=== PATIENT | female | born 1950 | race Hispanic/Latino ===

== ENCOUNTER → 2017-02-13 | Outpatient (CLI) | payer OTHER ==
[~2017-02-13] MED LIST: AMLO10TA2 PO; ASPI-1197 PO; CALC-1085 PO; CHOL500050 PO; GARL1000 PO; HALO15OI4 TP; LORA10CA PO; PRAV20TA4 PO; RED30POW PO; VITA400C70 PO
== END | disposition home or self-care (01) ==
LOC: RAH 10:03
PROVIDERS: ATTEND Internal Medicine
DX: M47.892 Other spondylosis, cervical region (principal); M85.88 Other specified disorders of bone density and structure, other site; I65.22 Occlusion and stenosis of left carotid artery
CPT/HCPCS: 72040

== ENCOUNTER → 2017-02-23 | Outpatient (CLI) | payer OTHER | END | disposition home or self-care (01) | LOC: RAH 12:32 | PROVIDERS: ATTEND Internal Medicine | DX: R09.89 Other specified symptoms and signs involving the circulatory and respiratory systems (principal) | CPT/HCPCS: 93880 ==

== ENCOUNTER → 2017-06-02 | Outpatient (CLI) | payer OTHER | END | disposition home or self-care (01) | LOC: RAH 11:41 | PROVIDERS: ATTEND Internal Medicine | DX: M77.32 Calcaneal spur, left foot (principal) | CPT/HCPCS: 73650 ==

== ENCOUNTER → 2018-01-01 | Outpatient (CLI) | payer OTHER ==
[~2018-01-01] MED LIST changes: -AMLO10TA2 PO; +AMLO10TA6 PO
== END | disposition home or self-care (01) ==
LOC: RAH 13:37
PROVIDERS: ATTEND Internal Medicine
DX: Z12.31 Encounter for screening mammogram for malignant neoplasm of breast (principal)
CPT/HCPCS: 77067

== ENCOUNTER → 2018-07-06 | Outpatient (CLI) | payer OTHER ==
[~2018-07-06] MED LIST changes: -AMLO10TA6 PO; +AMLO10TA7 PO
== END | disposition home or self-care (01) ==
LOC: RAH 08:26
PROVIDERS: ATTEND Dermatology
DX: R76.11 Nonspecific reaction to tuberculin skin test without active tuberculosis (principal)
CPT/HCPCS: 71046

== ENCOUNTER → 2020-01-15 | Outpatient (CLI) | payer OTHER ==
[~2020-01-15] MED LIST changes: +AMLO-258 PO; -AMLO10TA7 PO; +VITA-164 PO; -VITA400C70 PO
== END | disposition home or self-care (01) ==
LOC: RAH 13:30
PROVIDERS: ATTEND Internal Medicine
DX: Z12.31 Encounter for screening mammogram for malignant neoplasm of breast (principal); N64.89 Other specified disorders of breast
CPT/HCPCS: 77067

== ENCOUNTER → 2020-03-25 | Outpatient (CLI) | payer OTHER | END | disposition home or self-care (01) | LOC: RAH 11:25 | PROVIDERS: ATTEND Internal Medicine | DX: R07.81 Pleurodynia (principal); M19.09 Primary osteoarthritis, other specified site; M47.815 Spondylosis without myelopathy or radiculopathy, thoracolumbar region | CPT/HCPCS: 71046; 71100 ==

== ENCOUNTER → 2020-07-31 | Outpatient (CLI) | payer SELFPAY | END | disposition home or self-care (01) | LOC: OIH 11:19 | PROVIDERS: ATTEND Internal Medicine Cardiovascular Disease | DX: Z13.6 Encounter for screening for cardiovascular disorders (principal); I25.10 Atherosclerotic heart disease of native coronary artery without angina pectoris | CPT/HCPCS: 75571 ==

== ENCOUNTER → 2020-08-25 | Outpatient (CLI) | payer OTHER | END | disposition home or self-care (01) | LOC: SHCH 08:31 | PROVIDERS: ATTEND Internal Medicine Cardiovascular Disease | DX: I65.23 Occlusion and stenosis of bilateral carotid arteries (principal); I08.1 Rheumatic disorders of both mitral and tricuspid valves; R55 Syncope and collapse; R09.89 Other specified symptoms and signs involving the circulatory and respiratory systems | CPT/HCPCS: 93306; 93880 ==

== ENCOUNTER 2020-10-05 08:00 | Inpatient (IN) | payer OTHER ==
[2020-10-01 11:35] LABS: BASOPHILS % (AUTO) 0.7 % (0.0-5.0); EOSINOPHILS % (AUTO) 5.6 % (0.0-8.0); HEMATOCRIT 40.4 % (36-48); LYMPHOCYTES % (AUTO) 10.6 % (21.0-51.0); MEAN CORPUSCULAR HEMOGLOBIN 28.5 pg (27.0-33.0); MEAN CORPUSCULAR HGB CONC 33.7 g/dL (32.0-36.0); MEAN CORPUSCULAR VOLUME 84.5 fL (79-99); MONOCYTES % (AUTO) 7.2 % (3.0-13.0); NEUTROPHILS % (AUTO) 74.7 % (40.0-77.0); PLATELET COUNT (AUTO) 219 K/uL (130-400); RED BLOOD CELL COUNT(AUTO) 4.78 MIL/uL (4.00-5.50); RED CELL DISTRIBUTION WIDTH 13.3 % (11.0-15.5); WHITE BLOOD COUNT (AUTO) 7.4 K/uL (4.8-10.8)
[2020-10-01 11:45] LABS: CREATININE 0.8 mg/dL (0.5-1.5); POTASSIUM 4.3 mmol/L (3.5-5.1)
[2020-10-01 11:46] LABS: APPEARANCE,URINE Clear (CLEAR); BILIRUBIN,URINE Negative (NEGATIVE); COLOR,URINE Yellow (YELLOW); GLUCOSE, URINE (UA) Negative (NEGATIVE); KETONES,URINE Negative (NEGATIVE); LEUKOCYTE ESTERASE ,URINE Moderate (NEGATIVE); NITRATE,URINE Negative (NEGATIVE); OCCULT BLOOD,URINE Negative (NEGATIVE); PH,URINE 5.5 (5.0-8.0); PROTEIN,URINE Negative (NEGATIVE)
[2020-10-01 11:50] LABS: INR 1.02 (0.85-1.15); PROTHROMBIN TIME 11.1 SEC (9.6-11.6)
[2020-10-01 11:51] LABS: PARTIAL THROMBOPLASTIN TIME 27.4 SEC (26.3-35.5)
[2020-10-01 11:57] LABS: BACTERIA,URINE Rare /HPF (None Seen); RBC,URINE 0-1 /HPF (0-1); SQUAMOUS EPITHELIAL CELL,UR Rare /HPF (0-2); WBC,URINE 0-1 /HPF (0-1)
[2020-10-05] VITALS (17 sets, daily range): BP systolic 116–142; BP diastolic 46–62
[~2020-10-05] VITALS: Ht 152.4 cm; Wt 72.9 kg
[~2020-10-05 08:00] MED LIST changes: +0.9% NACL 500ML IV.SOLN 500 ML IV SCH; +ACETAMINOPHEN 325 MG TAB PO PRN; -AMLO-258 PO; +ASCO100T12 PO; +ATOR10TA69 PO; -CALC-1085 PO; +CHOL500045 PO; -CHOL500050 PO; -HALO15OI4 TP; +LISI-809 PO; +LORA10TA7 PO; +METO25TA6 PO; -PRAV20TA4 PO; +TRIA15CR48 TP; +UBID200C18 PO; -VITA-164 PO; +vitamin b12 PO
[2020-10-05] MEDS ORDERED: 0.9%NACL 1000ML 1,000 ML IV ONE (08:11)
[2020-10-05] MEDS ORDERED: HEPARIN 10,000 UNIT/10ML (1,000 UNIT/ML) VIAL ONE (11:06)
[2020-10-05] MEDS ORDERED: SODIUM BICARB 50MEQ 50ML VIAL 50 ML ONE (11:06)
[2020-10-05] MEDS ORDERED: IOHEXOL-350 50ML VIAL IV ONE (11:07)
[2020-10-05] MEDS ORDERED: NITROGLYCERIN 2 MG VIAL IV ONE (11:07)
[2020-10-05] MEDS ORDERED: IOHEXOL 350 MG/ML 100ML INFUS..BTL IV ONE (11:07)
[2020-10-05] MEDS ORDERED: MEPERIDINE-PF 25 MG/ML SYG ONE ×2 (11:07→11:35)
[2020-10-05] MEDS ORDERED: MIDAZOLAM HCL 1 MG/ML 2ML VIAL ONE ×2 (11:07→11:35)
[2020-10-05] MEDS ORDERED: LIDOCAINE HCL 400MG/20ML VIAL ONE (11:07)
[2020-10-05] MEDS ORDERED: NICARDIPINE 25MG INJ IV ONE (11:12)
[2020-10-05] MEDS ORDERED: 0.9%NACL 1000ML 1,000 ML IV SCH (12:00)
[2020-10-05] MEDS ORDERED: SODIUM BICARB 8.4% 50ML SYRINGE IVP ONE (14:14)
[2020-10-05] MEDS ORDERED: EPINEPHRINE 1MG SYG 10ML IVP ONE (14:14)
[2020-10-05] MEDS ORDERED: VASOPRESSIN 20 UNITS/ML 1ML VIAL IVP ONE (14:14)
[2020-10-05] MEDS ORDERED: ATROPINE 1MG SYG IVP ONE (14:14)
[2020-10-05 17:18] LABS: HEMATOCRIT 41.1 % (36-48); MEAN CORPUSCULAR HGB CONC 33.3 g/dL (32.0-36.0); RED BLOOD CELL COUNT(AUTO) 4.89 MIL/uL (4.00-5.50); RED CELL DISTRIBUTION WIDTH 13.2 % (11.0-15.5); WHITE BLOOD COUNT (AUTO) 10.2 K/uL (4.8-10.8)
[2020-10-05 17:30] LABS: HEMOGLOBIN A1C 5.5 % (4.0-6.0)
[2020-10-05 17:31] LABS: INR 1.07 (0.85-1.15); PROTHROMBIN TIME 11.6 SEC (9.6-11.6)
[2020-10-05 17:32] LABS: PARTIAL THROMBOPLASTIN TIME 26.2 SEC (26.3-35.5)
[2020-10-05 17:34] LABS: ALBUMIN 3.8 g/dL (3.5-5.0); BILIRUBIN,TOTAL 0.4 mg/dL (0.2-1.0); CREATININE 0.7 mg/dL (0.5-1.5); POTASSIUM 3.8 mmol/L (3.5-5.1); TOTAL PROTEIN, SERUM 7.7 g/dL (6.0-8.3)
[2020-10-05 17:44] LABS: ABG BASE EXCESS -0.1 mmol/L (-2.0-3.0); ABG HCO3 24.5 mmol/L (21.0-28.0); ABG OXYGEN SATURATION 94.9 % (95.0-99.0); ABG PCO2 40 mmHg (32-45)
[2020-10-05] MEDS ORDERED: METOPROLOL TARTRATE 25 MG TAB PO SCH (21:00)
[2020-10-06] VITALS (21 sets, daily range): BP systolic 118–171; BP diastolic 56–95
[2020-10-06 03:53] LABS: HEMATOCRIT 39.6 % (36-48); MEAN CORPUSCULAR HEMOGLOBIN 27.6 pg (27.0-33.0); MEAN CORPUSCULAR HGB CONC 33.1 g/dL (32.0-36.0); MEAN CORPUSCULAR VOLUME 83.5 fL (79-99); RED BLOOD CELL COUNT(AUTO) 4.74 MIL/uL (4.00-5.50); RED CELL DISTRIBUTION WIDTH 13.2 % (11.0-15.5); WHITE BLOOD COUNT (AUTO) 9.2 K/uL (4.8-10.8)
[2020-10-06 03:59] LABS: INR 1.07 (0.85-1.15); PROTHROMBIN TIME 11.6 SEC (9.6-11.6)
[2020-10-06 04:01] LABS: PARTIAL THROMBOPLASTIN TIME 26.5 SEC (26.3-35.5)
[2020-10-06 04:05] LABS: ALBUMIN 3.7 g/dL (3.5-5.0); BILIRUBIN,TOTAL 0.5 mg/dL (0.2-1.0); CREATININE 0.7 mg/dL (0.5-1.5); MAGNESIUM 2.1 mg/dL (1.80-2.40); PHOSPHORUS 3.6 mg/dL (2.5-4.9); TOTAL PROTEIN, SERUM 7.6 g/dL (6.0-8.3)
[2020-10-06] MEDS ORDERED: PAPAVERINE HCL 30 MG/ML 2ML VIAL ONE ×2 (06:53→14:44)
[2020-10-06] MEDS ORDERED: NOREPINEPHRINE BITARTRATE 8 MG in 0.9% NACL 250ML 250 ML IV PRN (07:00)
[2020-10-06] MEDS ORDERED: EPINEPHRINE PF 1MG AMP 10 MG in 0.9% NACL 250ML 240 ML IV PRN (07:00)
[2020-10-06] MEDS ORDERED: 0.9%NACL 1000ML 1,000 ML IV ONE (07:00)
[2020-10-06] MEDS ORDERED: CEFAZOLIN SODIUM 1 GM VIAL ONE ×3 (07:00→14:46)
[2020-10-06] MEDS ORDERED: AMINOCAPROIC ACID 5,000MG VIAL 15,000 MG in 0.9% NACL 500ML IV.SOLN 420 ML IV PRN (07:00)
[2020-10-06] MEDS ORDERED: NITROGLYCERIN 50MG/D5W 250ML 1 BOT ONE (07:08)
[2020-10-06] MEDS: CEFAZOLIN SODIUM 1 GM VIAL ONE ×2 (07:30→08:00)
[2020-10-06] MEDS ORDERED: ESMOLOL HCL 10 MG/ML 10 ML VIAL ONE (07:46)
[2020-10-06] MEDS ORDERED: LIDOCAINE PF 100MG/5ML (2%) SYRINGE 5ML ONE (07:46)
[2020-10-06] MEDS ORDERED: PROTAMINE SULFATE 10 MG/ML 25ML VIAL IV ONE (07:46)
[2020-10-06] MEDS ORDERED: SODIUM BICARB 50MEQ 50ML VIAL 150 ML ONE (07:46)
[2020-10-06] MEDS ORDERED: EPINEPHRINE PF 1MG AMP ONE (07:46)
[2020-10-06] MEDS ORDERED: AMINOCAPROIC ACID 5,000MG VIAL ONE (07:46)
[2020-10-06] MEDS ORDERED: NOREPINEPHRINE BITARTRATE 1 MG/1 ML ML IV ONE (07:46)
[2020-10-06] MEDS ORDERED: HEPARIN 10,000 UNIT/10ML (1,000 UNIT/ML) VIAL ONE ×2 (07:46→15:16)
[2020-10-06] MEDS ORDERED: FENTANYL CITRATE PF 50 MCG/1 ML 20ML VIAL IJ ONE ×2 (07:47→14:53)
[2020-10-06] MEDS ORDERED: MIDAZOLAM HCL 1 MG/ML 2ML VIAL ONE (07:47)
[2020-10-06] MEDS ORDERED: PROPOFOL 10 MG/ML 20ML VIAL IV ONE (07:47)
[2020-10-06] MEDS ORDERED: ROCURONIUM 10MG/1ML SYR 10 MG/ML ML ONE (07:47)
[2020-10-06] MEDS ORDERED: KETAMINE 50MG/ML SYRINGE 50 MG/ML DISP.SYRIN IV ONE (07:47)
[2020-10-06] MEDS ORDERED: LISINOPRIL 5 MG TABLET PO SCH (09:00)
[2020-10-06] MEDS: ATORVASTATIN 40 MG TABLET PO SCH (09:00)
[2020-10-06] MEDS ORDERED: ASPIRIN 81MG CHEW TAB PO SCH (09:00)
[2020-10-06] MEDS ORDERED: POTASSIUM CHLORIDE 20MEQ/100ML 100 ML IV ONE (10:47)
[2020-10-06] MEDS ORDERED: VASOPRESSIN 20 UNITS/ML 1ML VIAL ONE (10:55)
[2020-10-06] MEDS ORDERED: CEFAZOLIN SODIUM 1 GM VIAL IVP PRN (11:00)
[2020-10-06] MEDS ORDERED: 0.9%NACL 10ML VIAL IVP PRN (12:00)
[2020-10-06] MEDS: 0.9%NACL 1000ML 1,000 ML IV SCH (12:00)
[2020-10-06] MEDS ORDERED: NOREPINEPHRINE 4MG/NS 250ML 250 ML IV PRN (12:00)
[2020-10-06] MEDS ORDERED: CALCIUM GLUC 1GM VIAL 1 GM in 0.9%NACL 50ML 50 ML IV PRN (12:00)
[2020-10-06] MEDS ORDERED: DEXTROSE 50%-WATER 50 ML DISP.SYRIN IV PRN (12:00)
[2020-10-06] MEDS ORDERED: MORPHINE 2 MG SYG IV PRN (12:00)
[2020-10-06] MEDS ORDERED: ACETAMINOPHEN 650 MG SUPPOSITORY RC PRN (12:00)
[2020-10-06] MEDS ORDERED: PROPOFOL 1000 MG/100 ML 100 ML IV PRN (12:00)
[2020-10-06] MEDS ORDERED: GLUCAGON 1MG KIT 1 MG ML IM PRN (12:00)
[2020-10-06] MEDS ORDERED: EPINEPHRINE PF 1MG AMP 10 MG in DEXTROSE 5%-WATER 250 ML IV PRN (12:00)
[2020-10-06] MEDS ORDERED: MORPHINE 4 MG SYG IV PRN (12:00)
[2020-10-06] MEDS ORDERED: ALBUMIN (HUMAN) 5% 250 ML IV PRN (12:00)
[2020-10-06] MEDS ORDERED: AMINOCAPROIC ACID 5,000MG VIAL 15,000 MG in 0.9% NACL 250ML 250 ML IV SCH (12:00)
[2020-10-06] MEDS ORDERED: POTASSIUM PHOS 15 mMOL+NS250ML 250 ML IV PRN (12:00)
[2020-10-06] MEDS ORDERED: NITROGLYCERIN 50MG/D5W 250ML 250 BOT IV SCH (12:00)
[2020-10-06] MEDS ORDERED: ACETAMINOPHEN 325 MG TAB PO PRN (12:00)
[2020-10-06] MEDS ORDERED: INSULIN REGULAR, HUMAN 3ML 100 UNIT in 0.9%NACL 100ML 99 ML IV SCH ×2 (12:00)
[2020-10-06] MEDS ORDERED: 0.9% NACL 500ML IV.SOLN 500 ML IV SCH (12:00)
[2020-10-06] MEDS ORDERED: ONDANSETRON 4MG INJ IV PRN (12:00)
[2020-10-06 12:01] LABS: ABG BASE EXCESS -4.8 mmol/L (-2.0-3.0); ABG HCO3 21.2 mmol/L (21.0-28.0); ABG OXYGEN SATURATION 95.5 % (95.0-99.0); ABG PCO2 43 mmHg (32-45)
[2020-10-06 12:13] LABS: ABG BASE EXCESS -6.5 mmol/L (-2.0-3.0); ABG HCO3 19.3 mmol/L (21.0-28.0); ABG OXYGEN SATURATION 95.9 % (95.0-99.0); ABG PCO2 39 mmHg (32-45)
[2020-10-06] MEDS: MAGNESIUM 2GM PREMIX 50ML 50 ML IV PRN ×2 (12:15→17:10)
[2020-10-06] MEDS: POTASSIUM CHLORIDE 20MEQ/100ML 100 ML IV PRN ×8 (12:15→22:55)
[2020-10-06] MEDS: SODIUM BICARB 50MEQ 50ML VIAL IV PRN ×4 (12:15→22:32)
[2020-10-06 12:20] LABS: HEMATOCRIT 32.6 % (36-48); MEAN CORPUSCULAR HEMOGLOBIN 28.2 pg (27.0-33.0); PLATELET COUNT (AUTO) 288 K/uL (130-400); RED BLOOD CELL COUNT(AUTO) 3.93 MIL/uL (4.00-5.50); RED CELL DISTRIBUTION WIDTH 13.2 % (11.0-15.5)
[2020-10-06 12:27] LABS: INR 1.14 (0.85-1.15); PROTHROMBIN TIME 12.3 SEC (9.6-11.6)
[2020-10-06 12:29] LABS: PARTIAL THROMBOPLASTIN TIME 22.8 SEC (26.3-35.5)
[2020-10-06 12:33] LABS: WHITE BLOOD COUNT (AUTO) 33.4 K/uL (4.8-10.8)
[2020-10-06 12:37] LABS: CREATININE 0.9 mg/dL (0.5-1.5); MAGNESIUM 1.8 mg/dL (1.80-2.40); PHOSPHORUS 3.9 mg/dL (2.5-4.9)
[2020-10-06 13:09] LABS: ABG BASE EXCESS -0.8 mmol/L (-2.0-3.0); ABG HCO3 24.2 mmol/L (21.0-28.0); ABG OXYGEN SATURATION 95.7 % (95.0-99.0); ABG PCO2 41 mmHg (32-45)
[2020-10-06 13:10] LABS: BAND NEUTROPHILS % (MANUAL) 16 % (0-2); EOSINOPHILS % (MANUAL) 1 % (1-6); LYMPHOCYTES % (MANUAL) 9 % (22-44); MAN.DIFF COMMENT-IMPRESSION MANUAL DIFFERENTIAL; MONOCYTES % (MANUAL) 3 % (2-9); PLATELET MORPHOLOGY COMMENT ADEQUATE; SEGMENTED NEUTROPHILS % 71 % (40-70)
[2020-10-06 13:57] LABS: ABG BASE EXCESS -1.6 mmol/L (-2.0-3.0); ABG HCO3 22.1 mmol/L (21.0-28.0); ABG OXYGEN SATURATION 99.1 % (95.0-99.0); ABG PCO2 34 mmHg (32-45)
[2020-10-06 13:57] LABS: ABG BASE EXCESS -4.3 mmol/L (-2.0-3.0); ABG HCO3 20.8 mmol/L (21.0-28.0); ABG OXYGEN SATURATION 98.9 % (95.0-99.0); ABG PCO2 38 mmHg (32-45)
[2020-10-06] MEDS ORDERED: MIDAZOLAM HCL 1 MG/ML 5ML VIAL ONE (14:39)
[2020-10-06 15:23] LABS: ABG BASE EXCESS -4.5 mmol/L (-2.0-3.0); ABG HCO3 20.2 mmol/L (21.0-28.0); ABG OXYGEN SATURATION 98.7 % (95.0-99.0); ABG PCO2 36 mmHg (32-45)
[2020-10-06] MEDS ORDERED: EPHEDRINE SULFATE 50 MG/ML AMPULE ONE (15:46)
[2020-10-06 16:12] LABS: ABG BASE EXCESS -3.5 mmol/L (-2.0-3.0); ABG HCO3 21.7 mmol/L (21.0-28.0); ABG OXYGEN SATURATION 98.1 % (95.0-99.0); ABG PCO2 40 mmHg (32-45)
[2020-10-06] MEDS ORDERED: ASPIRIN 325MG TAB ONE (16:49)
[2020-10-06] MEDS ORDERED: CLOPIDOGREL 75MG TAB ONE (16:49)
[2020-10-06 17:19] LABS: BASOPHILS % (AUTO) 0.4 % (0.0-5.0); EOSINOPHILS % (AUTO) 0.1 % (0.0-8.0); HEMATOCRIT 29.7 % (36-48); LYMPHOCYTES % (AUTO) 4.1 % (21.0-51.0); MEAN CORPUSCULAR HEMOGLOBIN 28.4 pg (27.0-33.0); MEAN CORPUSCULAR HGB CONC 33.3 g/dL (32.0-36.0); MEAN CORPUSCULAR VOLUME 85.3 fL (79-99); MONOCYTES % (AUTO) 7.5 % (3.0-13.0); NEUTROPHILS % (AUTO) 86.4 % (40.0-77.0); PLATELET COUNT (AUTO) 220 K/uL (130-400); RED BLOOD CELL COUNT(AUTO) 3.48 MIL/uL (4.00-5.50); RED CELL DISTRIBUTION WIDTH 13.4 % (11.0-15.5)
[2020-10-06 17:23] LABS: WHITE BLOOD COUNT (AUTO) 32.6 K/uL (4.8-10.8)
[2020-10-06 17:25] LABS: ABG BASE EXCESS -9.9 mmol/L (-2.0-3.0); ABG HCO3 18.2 mmol/L (21.0-28.0); ABG OXYGEN SATURATION 92.4 % (95.0-99.0); ABG PCO2 50 mmHg (32-45)
[2020-10-06] MEDS ORDERED: AMIODARONE 900MG VIAL 150 MG in DEXTROSE 5%-WATER 100 ML IV ONE (17:30)
[2020-10-06] MEDS ORDERED: AMIODARONE 900MG VIAL 900 MG in DEXTROSE 5%-WATER 500 ML IV SCH (17:30)
[2020-10-06] MEDS: CEFAZOLIN SODIUM 1 GM VIAL IV SCH (17:38)
[2020-10-06 17:39] LABS: CREATININE 1.1 mg/dL (0.5-1.5); POTASSIUM 3.4 mmol/L (3.5-5.1)
[2020-10-06 17:42] LABS: INR 1.31 (0.85-1.15); MAGNESIUM 1.8 mg/dL (1.80-2.40); PHOSPHORUS 2.6 mg/dL (2.5-4.9); PROTHROMBIN TIME 13.9 SEC (9.6-11.6)
[2020-10-06 17:43] LABS: PARTIAL THROMBOPLASTIN TIME 22.9 SEC (26.3-35.5)
[2020-10-06] MEDS ORDERED: AMIODARONE 900MG VIAL 360 MG in DEXTROSE 5%-WATER 200 ML IV SCH (17:45)
[2020-10-06] MEDS ORDERED: NOREPINEPHRINE 8MG/NS 250 ML 250 ML IV PRN (18:30)
[2020-10-06] MEDS: PHENYLEPHRINE HCL 100 MG in 0.9% NACL 250ML 250 ML IV SCH ×2 (19:39→22:11)
[2020-10-06 20:07] LABS: ABG BASE EXCESS -9.8 mmol/L (-2.0-3.0); ABG HCO3 16.4 mmol/L (21.0-28.0); ABG OXYGEN SATURATION 97.7 % (95.0-99.0); ABG PCO2 37 mmHg (32-45)
[2020-10-06 20:54] LABS: HEMATOCRIT 25.1 % (36-48); MEAN CORPUSCULAR HEMOGLOBIN 28.1 pg (27.0-33.0); MEAN CORPUSCULAR HGB CONC 33.9 g/dL (32.0-36.0); MEAN CORPUSCULAR VOLUME 83.1 fL (79-99); RED BLOOD CELL COUNT(AUTO) 3.02 MIL/uL (4.00-5.50); RED CELL DISTRIBUTION WIDTH 13.5 % (11.0-15.5); WHITE BLOOD COUNT (AUTO) 25.9 K/uL (4.8-10.8)
[2020-10-06 21:18] LABS: ALANINE AMINOTRANSFERASE 32 U/L (12-78); ALBUMIN 2.2 g/dL (3.5-5.0); ASPARTATE AMINOTRANSFERASE 126 U/L (10-37); BILIRUBIN,TOTAL 0.4 mg/dL (0.2-1.0); CARBON DIOXIDE 28 mmol/L (21-32); CHLORIDE 118 mmol/L (101-111); CREATININE 1.6 mg/dL (0.5-1.5); GLOMERULAR FILTR. RATE CALC 34 mL/min (>60); POTASSIUM 3.1 mmol/L (3.5-5.1); TOTAL PROTEIN, SERUM 4.2 g/dL (6.0-8.3); UREA NITROGEN, BLOOD 15 mg/dL (7-18)
[2020-10-06 21:25] LABS: GLUCOSE,RANDOM 484 mg/dL (70-105); SODIUM SERUM > 162 mmol/L (136-145)
[2020-10-06] MEDS: FAMOTIDINE 20MG VIAL IV SCH (21:38)
[2020-10-06 22:14] LABS: ABG BASE EXCESS -2.2 mmol/L (-2.0-3.0); ABG HCO3 21.5 mmol/L (21.0-28.0); ABG PCO2 34 mmHg (32-45)
[2020-10-06] MEDS ORDERED: AMIODARONE 900MG VIAL 450 MG in DEXTROSE 5%-WATER 250 ML IV SCH (23:45)
[2020-10-07] VITALS (86 sets, daily range): BP systolic 24–186; BP diastolic 40–84
[2020-10-07 00:14] LABS: ABG BASE EXCESS -0.6 mmol/L (-2.0-3.0); ABG HCO3 22.7 mmol/L (21.0-28.0); ABG OXYGEN SATURATION 97.3 % (95.0-99.0); ABG PCO2 33 mmHg (32-45)
[2020-10-07] MEDS: CEFAZOLIN SODIUM 1 GM VIAL IV SCH ×2 (00:32→09:22)
[2020-10-07] MEDS: POTASSIUM CHLORIDE 20MEQ/100ML 100 ML IV PRN ×3 (00:32→06:15)
[2020-10-07 02:10] LABS: ABG BASE EXCESS 2.5 mmol/L (-2.0-3.0); ABG HCO3 25.2 mmol/L (21.0-28.0); ABG OXYGEN SATURATION 97.6 % (95.0-99.0); ABG PCO2 32 mmHg (32-45)
[2020-10-07 04:16] LABS: ABG BASE EXCESS 2.7 mmol/L (-2.0-3.0); ABG HCO3 26.2 mmol/L (21.0-28.0); ABG OXYGEN SATURATION 97.2 % (95.0-99.0); ABG PCO2 37 mmHg (32-45)
[2020-10-07 04:38] LABS: HEMATOCRIT 33.9 % (36-48); MEAN CORPUSCULAR HEMOGLOBIN 28.5 pg (27.0-33.0); MEAN CORPUSCULAR HGB CONC 34.2 g/dL (32.0-36.0); MEAN CORPUSCULAR VOLUME 83.3 fL (79-99); RED BLOOD CELL COUNT(AUTO) 4.07 MIL/uL (4.00-5.50); RED CELL DISTRIBUTION WIDTH 13.4 % (11.0-15.5); WHITE BLOOD COUNT (AUTO) 22.5 K/uL (4.8-10.8)
[2020-10-07 04:47] LABS: INR 1.21 (0.85-1.15)
[2020-10-07 04:48] LABS: PARTIAL THROMBOPLASTIN TIME 24.5 SEC (26.3-35.5)
[2020-10-07 04:51] LABS: CREATININE 1.1 mg/dL (0.5-1.5); MAGNESIUM 2.2 mg/dL (1.80-2.40); PHOSPHORUS 0.6 mg/dL (2.5-4.9); POTASSIUM 3.3 mmol/L (3.5-5.1)
[2020-10-07 07:19] LABS: ABG BASE EXCESS 4.9 mmol/L (-2.0-3.0); ABG HCO3 27.7 mmol/L (21.0-28.0); ABG OXYGEN SATURATION 97.3 % (95.0-99.0); ABG PCO2 35 mmHg (32-45)
[2020-10-07 08:21] LABS: MYOGLOBIN 936 ng/mL (10-92)
[2020-10-07 09:03] LABS: CREATINE KINASE, TOTAL 2513 U/L (21-232)
[2020-10-07 09:15] LABS: ABG BASE EXCESS 4.6 mmol/L (-2.0-3.0); ABG HCO3 27.9 mmol/L (21.0-28.0); ABG OXYGEN SATURATION 95.6 % (95.0-99.0); ABG PCO2 37 mmHg (32-45)
[2020-10-07] MEDS: CLOPIDOGREL 75MG TAB PO SCH (09:22)
[2020-10-07] MEDS: ATORVASTATIN 40 MG TABLET PO SCH (09:22)
[2020-10-07] MEDS: FAMOTIDINE 20MG VIAL IV SCH ×2 (09:22→20:03)
[2020-10-07] MEDS: ASPIRIN 325MG TAB PO SCH (09:22)
[2020-10-07] MEDS: 0.9%NACL 1000ML 1,000 ML IV SCH (09:23)
[2020-10-07 10:37] LABS: ABG BASE EXCESS 5.5 mmol/L (-2.0-3.0); ABG HCO3 29.4 mmol/L (21.0-28.0); ABG OXYGEN SATURATION 93.8 % (95.0-99.0); ABG PCO2 41 mmHg (32-45)
[2020-10-07] MEDS: TRAMADOL HCL 50 MG TABLET PO PRN ×4 (10:45→22:01)
[2020-10-07] MEDS ORDERED: ATORVASTATIN 40 MG TABLET PO SCH (21:00)
[2020-10-07 21:55] LABS: MAGNESIUM 2.1 mg/dL (1.80-2.40); POTASSIUM 4.9 mmol/L (3.5-5.1)
[2020-10-07] MEDS: LORATADINE 10 MG TABLET PO PRN (22:01)
[2020-10-07] MEDS: ACETAMINOPHEN 325 MG TAB PO PRN (22:01)
[2020-10-08] VITALS (72 sets, daily range): BP systolic 89–146; BP diastolic 31–88
[2020-10-08 03:51] LABS: HEMATOCRIT 29.9 % (36-48); MEAN CORPUSCULAR HEMOGLOBIN 29.1 pg (27.0-33.0); MEAN CORPUSCULAR HGB CONC 33.8 g/dL (32.0-36.0); MEAN CORPUSCULAR VOLUME 86.2 fL (79-99); NUCLEATED RED BLOOD CELLS 0.1 % (0.0-0.19); PLATELET COUNT (AUTO) 122 K/uL (130-400); RED BLOOD CELL COUNT(AUTO) 3.47 MIL/uL (4.00-5.50); RED CELL DISTRIBUTION WIDTH 14.6 % (11.0-15.5)
[2020-10-08 03:56] LABS: WHITE BLOOD COUNT (AUTO) 35.2 K/uL (4.8-10.8)
[2020-10-08 04:01] LABS: PHOSPHORUS 4.1 mg/dL (2.5-4.9); POTASSIUM 4.9 mmol/L (3.5-5.1)
[2020-10-08 04:21] LABS: BAND NEUTROPHILS % (MANUAL) 26 % (0-2); LYMPHOCYTES % (MANUAL) 7 % (22-44); MAN.DIFF COMMENT-IMPRESSION MANUAL DIFFERENTIAL; METAMYELOCYTES % 1 % (0-0); MONOCYTES % (MANUAL) 5 % (2-9); REACTIVE LYMPHOCYTES 1 % (0-0); SEGMENTED NEUTROPHILS % 60 % (40-70)
[2020-10-08 04:22] LABS: PLATELET MORPHOLOGY COMMENT ADEQUATE
[2020-10-08] MEDS: INSULIN HUMULIN R 100 UNIT/ML 3ML SQ SCH ×4 (06:08→20:51)
[2020-10-08 07:21] LABS: ABG OXYGEN SATURATION 89.7 % (95.0-99.0); ABG PCO2 39 mmHg (32-45)
[2020-10-08] MEDS: FAMOTIDINE 20MG VIAL IV SCH ×2 (10:47→19:38)
[2020-10-08] MEDS: ASPIRIN 325MG TAB PO SCH (10:48)
[2020-10-08] MEDS: ATORVASTATIN 40 MG TABLET PO SCH (10:48)
[2020-10-08] MEDS: TRAMADOL HCL 50 MG TABLET PO PRN (10:48)
[2020-10-08] MEDS: CLOPIDOGREL 75MG TAB PO SCH (10:48)
[2020-10-08] MEDS ORDERED: ZOSYN 3.375GM+NS 50ML 3.38 GM in 0.9%NACL 50ML 50 ML IV SCH (15:30)
[2020-10-08 16:15] LABS: APPEARANCE,URINE Clear (CLEAR); BILIRUBIN,URINE Negative (NEGATIVE); COLOR,URINE Yellow (YELLOW); GLUCOSE, URINE (UA) Negative (NEGATIVE); KETONES,URINE 40 mg/dL (NEGATIVE); LEUKOCYTE ESTERASE ,URINE Negative (NEGATIVE); NITRATE,URINE Negative (NEGATIVE); OCCULT BLOOD,URINE Negative (NEGATIVE); PH,URINE 6.5 (5.0-8.0); PROTEIN,URINE Trace mg/dL (NEGATIVE)
[2020-10-08 16:25] LABS: BACTERIA,URINE Rare /HPF (None Seen); RBC,URINE None Seen /HPF (0-1); SQUAMOUS EPITHELIAL CELL,UR None Seen /HPF (0-2); WBC,URINE 0-1 /HPF (0-1)
[2020-10-08] MEDS: FUROSEMIDE 20 MG TABLET PO SCH (16:49)
[2020-10-08] MEDS: ZOSYN 3.375GM+NS 50ML 50 ML IV SCH (16:49)
[2020-10-08] MEDS: LORATADINE 10 MG TABLET PO PRN (19:39)
[2020-10-08] MEDS: ACETAMINOPHEN 325 MG TAB PO PRN (19:39)
[2020-10-08] MEDS: AMIODARONE 200 MG TABLET PO SCH (19:39)
[2020-10-08 22:26] LABS: ABG BASE EXCESS 4.4 mmol/L (-2.0-3.0); ABG HCO3 27.5 mmol/L (21.0-28.0); ABG OXYGEN SATURATION 93.1 % (95.0-99.0); ABG PCO2 35 mmHg (32-45)
[2020-10-08] MEDS ORDERED: DiphenhydrAMINE HCL 50 MG/ML VIAL IV ONE (22:30)
[2020-10-08] MEDS ORDERED: DiphenhydrAMINE HCL 50 MG/ML VIAL ONE (22:37)
[2020-10-08] MEDS ORDERED: FUROSEMIDE 100MG VIAL ONE (23:49)
[2020-10-08] MEDS ORDERED: 0.9%NACL 100ML 100 ML ONE (23:50)
[2020-10-09] VITALS (33 sets, daily range): BP systolic 85–157; BP diastolic 40–104
[2020-10-09] MEDS ORDERED: FUROSEMIDE 100MG VIAL 100 MG in 0.9%NACL 100ML 100 ML IV SCH ×2
[2020-10-09] MEDS: ZOSYN 3.375GM+NS 50ML 50 ML IV SCH ×3 (00:02→16:02)
[2020-10-09 03:30] LABS: ABG BASE EXCESS 4.6 mmol/L (-2.0-3.0); ABG HCO3 27.8 mmol/L (21.0-28.0); ABG OXYGEN SATURATION 98.9 % (95.0-99.0); ABG PCO2 37 mmHg (32-45)
[2020-10-09 04:01] LABS: HEMATOCRIT 27.1 % (36-48); MEAN CORPUSCULAR HEMOGLOBIN 28.2 pg (27.0-33.0); MEAN CORPUSCULAR HGB CONC 31.7 g/dL (32.0-36.0); MEAN CORPUSCULAR VOLUME 88.9 fL (79-99); NUCLEATED RED BLOOD CELLS 0.7 % (0.0-0.19); RED BLOOD CELL COUNT(AUTO) 3.05 MIL/uL (4.00-5.50); RED CELL DISTRIBUTION WIDTH 14.6 % (11.0-15.5)
[2020-10-09 04:07] LABS: WHITE BLOOD COUNT (AUTO) 30.2 K/uL (4.8-10.8)
[2020-10-09 04:10] LABS: CREATININE 1.1 mg/dL (0.5-1.5); POTASSIUM 3.9 mmol/L (3.5-5.1)
[2020-10-09 04:12] LABS: PLATELET COUNT (AUTO) 109 K/uL (130-400)
[2020-10-09 04:32] LABS: BAND NEUTROPHILS % (MANUAL) 26 % (0-2); LYMPHOCYTES % (MANUAL) 2 % (22-44); MAN.DIFF COMMENT-IMPRESSION MANUAL DIFFERENTIAL; MONOCYTES % (MANUAL) 5 % (2-9); SEGMENTED NEUTROPHILS % 67 % (40-70)
[2020-10-09 04:33] LABS: PLATELET MORPHOLOGY COMMENT SLIGHTLY DECREASED
[2020-10-09] MEDS: INSULIN HUMULIN R 100 UNIT/ML 3ML SQ SCH ×4 (07:30→20:25)
[2020-10-09] MEDS: FUROSEMIDE 20 MG TABLET PO SCH ×2 (08:14→17:00)
[2020-10-09] MEDS ORDERED: ENOXAPARIN SODIUM 40 MG/0.4 ML SYRINGE SQ SCH (09:00)
[2020-10-09] MEDS ORDERED: ASPIRIN 325MG TAB PO SCH (09:00)
[2020-10-09] MEDS: AMIODARONE 200 MG TABLET PO SCH ×2 (09:03→20:25)
[2020-10-09] MEDS: FAMOTIDINE 20MG VIAL IV SCH ×2 (09:03→20:24)
[2020-10-09] MEDS: ATORVASTATIN 40 MG TABLET PO SCH (09:03)
[2020-10-09] MEDS: CLOPIDOGREL 75MG TAB PO SCH (09:04)
[2020-10-09] MEDS: ASPIRIN 81MG CHEW TAB PO SCH (09:06)
[2020-10-09] MEDS ORDERED: LIDOCAINE HCL-MPF 1% 2ML VIAL IV PRN (14:30)
[2020-10-09] MEDS ORDERED: POTASSIUM CHLORIDE 20MEQ/100ML 100 ML IV PRN (14:30)
[2020-10-09] MEDS: MIDODRINE HCL 5 MG TABLET PO SCH ×2 (14:49→20:24)
[2020-10-09] MEDS ORDERED: KCL 20 MEQ ERTAB PO PRN (16:00)
[2020-10-09] MEDS: KCL 20 MEQ ERTAB PO PRN (16:02)
[2020-10-10] VITALS (15 sets, daily range): BP systolic 88–132; BP diastolic 42–63
[2020-10-10] MEDS: ZOSYN 3.375GM+NS 50ML 50 ML IV SCH ×4 (00:15→23:52)
[2020-10-10 04:12] LABS: HEMATOCRIT 27.2 % (36-48); MEAN CORPUSCULAR HEMOGLOBIN 28.3 pg (27.0-33.0); MEAN CORPUSCULAR HGB CONC 32.4 g/dL (32.0-36.0); MEAN CORPUSCULAR VOLUME 87.5 fL (79-99); NUCLEATED RED BLOOD CELLS 0.4 % (0.0-0.19); RED BLOOD CELL COUNT(AUTO) 3.11 MIL/uL (4.00-5.50); RED CELL DISTRIBUTION WIDTH 14.2 % (11.0-15.5); WHITE BLOOD COUNT (AUTO) 23.3 K/uL (4.8-10.8)
[2020-10-10 04:27] LABS: CREATININE 1.1 mg/dL (0.5-1.5)
[2020-10-10 04:33] LABS: POTASSIUM 2.9 mmol/L (3.5-5.1)
[2020-10-10] MEDS: POTASSIUM CHLORIDE 20MEQ/100ML 100 ML IV PRN (04:41)
[2020-10-10] MEDS: POTASSIUM CHLORIDE 10% ELIXIR 20 MEQ/15 ML UDCUP PO PRN ×2 (05:12→08:00)
[2020-10-10] MEDS: INSULIN HUMULIN R 100 UNIT/ML 3ML SQ SCH (05:51)
[2020-10-10] MEDS: AMIODARONE 200 MG TABLET PO SCH ×2 (08:01→21:00)
[2020-10-10] MEDS: ATORVASTATIN 40 MG TABLET PO SCH (08:01)
[2020-10-10] MEDS: ENOXAPARIN SODIUM 30 MG/0.3 ML SQ SCH (08:01)
[2020-10-10] MEDS: TRAMADOL HCL 50 MG TABLET PO PRN (08:02)
[2020-10-10] MEDS: ASPIRIN 81MG CHEW TAB PO SCH (08:02)
[2020-10-10] MEDS: CLOPIDOGREL 75MG TAB PO SCH (08:02)
[2020-10-10] MEDS: MIDODRINE HCL 5 MG TABLET PO SCH (08:04)
[2020-10-10] MEDS: FUROSEMIDE 20 MG TABLET PO SCH ×2 (08:04→17:29)
[2020-10-10] MEDS: FAMOTIDINE 20MG TAB PO SCH (08:05)
[2020-10-10] MEDS ORDERED: TRAMADOL HCL 50 MG TABLET PO PRN ×2 (10:00)
[2020-10-10] MEDS: METOPROLOL TARTRATE 25 MG TAB PO SCH (21:00)
[2020-10-10] MEDS ORDERED: 0.9%NACL 50ML 50 ML IV ONE (23:28)
[2020-10-11 03:00] VITALS: BP 104/57
[2020-10-11 08:00] VITALS: BP 107/58
[2020-10-11] MEDS ORDERED: 0.9%NACL 50ML 50 ML IV ONE ×3 (08:32→23:15)
[2020-10-11] MEDS: METOPROLOL TARTRATE 25 MG TAB PO SCH ×2 (08:40→20:25)
[2020-10-11] MEDS: FAMOTIDINE 20MG TAB PO SCH (08:41)
[2020-10-11] MEDS: AMIODARONE 200 MG TABLET PO SCH ×2 (08:41→20:25)
[2020-10-11] MEDS: CLOPIDOGREL 75MG TAB PO SCH (08:41)
[2020-10-11] MEDS: FUROSEMIDE 20 MG TABLET PO SCH ×2 (08:41→18:01)
[2020-10-11] MEDS: ATORVASTATIN 40 MG TABLET PO SCH (08:41)
[2020-10-11] MEDS: ASPIRIN 81MG CHEW TAB PO SCH (08:41)
[2020-10-11] MEDS: ENOXAPARIN SODIUM 30 MG/0.3 ML SQ SCH (08:42)
[2020-10-11] MEDS: ZOSYN 3.375GM+NS 50ML 50 ML IV SCH ×2 (08:42→18:01)
[2020-10-11] MEDS: KCL 20 MEQ ERTAB PO PRN ×2 (08:42→18:01)
[2020-10-11 12:15] VITALS: BP 97/54
[2020-10-11 17:05] VITALS: BP 119/54
[2020-10-11 19:00] VITALS: BP 116/85
[2020-10-11 23:00] VITALS: BP 120/76
[2020-10-12] MEDS: ZOSYN 3.375GM+NS 50ML 50 ML IV SCH ×2 (00:03→07:37)
[2020-10-12 03:00] VITALS: BP 111/60
[2020-10-12] MEDS ORDERED: 0.9%NACL 50ML 50 ML IV ONE (07:11)
[2020-10-12] MEDS: BENZOCAINE/MENTH/CETYLPYRD CL 1 EACH LOZENGE MM PRN ×3 (07:37→20:35)
[2020-10-12] MEDS: CLOPIDOGREL 75MG TAB PO SCH (07:38)
[2020-10-12] MEDS: FUROSEMIDE 20 MG TABLET PO SCH ×2 (07:38→16:14)
[2020-10-12] MEDS: ENOXAPARIN SODIUM 30 MG/0.3 ML SQ SCH (07:38)
[2020-10-12] MEDS: ATORVASTATIN 40 MG TABLET PO SCH (07:39)
[2020-10-12] MEDS: METOPROLOL TARTRATE 25 MG TAB PO SCH ×2 (07:39→20:33)
[2020-10-12] MEDS: AMIODARONE 200 MG TABLET PO SCH ×2 (07:39→20:34)
[2020-10-12] MEDS: FAMOTIDINE 20MG TAB PO SCH (07:39)
[2020-10-12] MEDS: ASPIRIN 81MG CHEW TAB PO SCH (07:39)
[2020-10-12 08:28] VITALS: BP 108/56
[2020-10-12] MEDS: NYSTATIN 100000 UNIT/ML 5ML UDCUP PO SCH ×2 (12:03→20:34)
[2020-10-12 12:12] VITALS: BP 126/65
[2020-10-12 16:54] VITALS: BP 110/66
[2020-10-12 19:43] VITALS: BP 108/65
[2020-10-12 23:38] VITALS: BP 97/54
[2020-10-13 04:00] VITALS: BP 102/60
[2020-10-13] MEDS: BENZOCAINE/MENTH/CETYLPYRD CL 1 EACH LOZENGE MM PRN ×3 (05:22→18:29)
[2020-10-13] MEDS: CLOPIDOGREL 75MG TAB PO SCH (07:09)
[2020-10-13] MEDS: METOPROLOL TARTRATE 25 MG TAB PO SCH (07:09)
[2020-10-13] MEDS: FAMOTIDINE 20MG TAB PO SCH (07:09)
[2020-10-13] MEDS: ATORVASTATIN 40 MG TABLET PO SCH (07:09)
[2020-10-13] MEDS: FUROSEMIDE 20 MG TABLET PO SCH ×2 (07:10→16:12)
[2020-10-13] MEDS: NYSTATIN 100000 UNIT/ML 5ML UDCUP PO SCH ×3 (07:10→20:02)
[2020-10-13] MEDS: ASPIRIN 81MG CHEW TAB PO SCH (07:10)
[2020-10-13] MEDS: AMIODARONE 200 MG TABLET PO SCH (07:11)
[2020-10-13] MEDS: ENOXAPARIN SODIUM 30 MG/0.3 ML SQ SCH (07:12)
[2020-10-13 07:30] VITALS: BP 107/61
[2020-10-13] MEDS ORDERED: LOPERAMIDE 1 MG/7.5 ML UDCUP PO PRN (08:30)
[2020-10-13 11:05] VITALS: BP 109/56
[2020-10-13] MEDS: LOSARTAN 25 MG TABLET PO SCH (12:07)
[2020-10-13] MEDS ORDERED: AMLO-258 PO (12:12)
[2020-10-13] MEDS ORDERED: LISINOPRIL 2.5 MG TABLET PO SCH (13:00)
[2020-10-13 16:00] VITALS: BP 115/65
[2020-10-13 19:44] VITALS: BP 111/70
[2020-10-13] MEDS: METOPROLOL SUCCINATE 50 MG TAB.SR.24H PO SCH (20:02)
[2020-10-13 23:37] VITALS: BP 106/61
[2020-10-14 03:29] LABS: BASOPHILS % (AUTO) 0.4 % (0.0-5.0); EOSINOPHILS % (AUTO) 6.9 % (0.0-8.0); HEMATOCRIT 29.9 % (36-48); MEAN CORPUSCULAR HEMOGLOBIN 28.2 pg (27.0-33.0); MEAN CORPUSCULAR HGB CONC 31.8 g/dL (32.0-36.0); MEAN CORPUSCULAR VOLUME 88.7 fL (79-99); MONOCYTES % (AUTO) 10.4 % (3.0-13.0); NUCLEATED RED BLOOD CELLS 1.1 % (0.0-0.19); PLATELET COUNT (AUTO) 236 K/uL (130-400); RED BLOOD CELL COUNT(AUTO) 3.37 MIL/uL (4.00-5.50); RED CELL DISTRIBUTION WIDTH 16.1 % (11.0-15.5); WHITE BLOOD COUNT (AUTO) 13.6 K/uL (4.8-10.8)
[2020-10-14 03:38] LABS: CREATININE 0.9 mg/dL (0.5-1.5)
[2020-10-14 03:47] LABS: POTASSIUM 2.9 mmol/L (3.5-5.1)
[2020-10-14] MEDS: KCL 20 MEQ ERTAB PO PRN (04:04)
[2020-10-14 04:20] VITALS: BP 125/60
[2020-10-14] MEDS: POTASSIUM CHLORIDE 10% ELIXIR 20 MEQ/15 ML UDCUP PO PRN ×3 (06:32→10:30)
[2020-10-14 07:59] VITALS: BP 129/65
[2020-10-14] MEDS ORDERED: KCL 20 MEQ ERTAB PO SCH (08:00)
[2020-10-14] MEDS: ASPIRIN 81MG CHEW TAB PO SCH (08:18)
[2020-10-14] MEDS: CLOPIDOGREL 75MG TAB PO SCH (08:18)
[2020-10-14] MEDS: LOSARTAN 25 MG TABLET PO SCH (08:18)
[2020-10-14] MEDS: ATORVASTATIN 40 MG TABLET PO SCH (08:18)
[2020-10-14] MEDS: FAMOTIDINE 20MG TAB PO SCH (08:19)
[2020-10-14] MEDS: METOPROLOL SUCCINATE 50 MG TAB.SR.24H PO SCH (08:19)
[2020-10-14] MEDS: FUROSEMIDE 20 MG TABLET PO SCH ×2 (08:19→16:43)
[2020-10-14] MEDS: NYSTATIN 100000 UNIT/ML 5ML UDCUP PO SCH ×2 (08:19→14:00)
[2020-10-14] MEDS: POTASSIUM CHLORIDE 10% ELIXIR 20 MEQ/15 ML UDCUP PO SCH ×2 (08:20→16:43)
[2020-10-14] MEDS: ENOXAPARIN SODIUM 30 MG/0.3 ML SQ SCH (08:24)
[2020-10-14] MEDS ORDERED: SPIRONOLACTONE 25 MG TAB PO SCH (09:00)
[2020-10-14] MEDS ORDERED: AMIODARONE 200 MG TABLET PO SCH (09:00)
[2020-10-14 11:28] VITALS: BP 104/54
== END 2020-10-14 18:15 | DRG 231 ==
LOC: DAH 08:00 → DAHIP 08:01 → DAH 08:01 → 4CH 19:25 → 2CH 10-06 09:29 → 2DH 10-10 14:04
PROVIDERS: ADMIT Thoracic Surgery (Cardiothoracic Vascular Surgery); ATTEND Thoracic Surgery (Cardiothoracic Vascular Surgery)
PROC: 4A023N7 Measurement of Cardiac Sampling and Pressure, Left Heart, Percutaneous Approach (ICD-10-PCS; 2020-10-05)
PROC: B2111ZZ Fluoroscopy of Multiple Coronary Arteries using Low Osmolar Contrast (ICD-10-PCS; 2020-10-05)
PROC: B2151ZZ Fluoroscopy of Left Heart using Low Osmolar Contrast (ICD-10-PCS; 2020-10-05)
PROC: 06BQ4ZZ Excision of Left Saphenous Vein, Percutaneous Endoscopic Approach (ICD-10-PCS; 2020-10-06)
PROC: 021009W Bypass Coronary Artery, One Artery from Aorta with Autologous Venous Tissue, Open Approach (ICD-10-PCS; 2020-10-06)
PROC: 30233N1 Transfusion of Nonautologous Red Blood Cells into Peripheral Vein, Percutaneous Approach (ICD-10-PCS; 2020-10-06)
PROC: 02100Z9 Bypass Coronary Artery, One Artery from Left Internal Mammary, Open Approach (ICD-10-PCS; principal; 2020-10-06 07:45)
PROC: 02C03ZZ Extirpation of Matter from Coronary Artery, One Artery, Percutaneous Approach (ICD-10-PCS; 2020-10-06 07:45)
PROC: 021109W Bypass Coronary Artery, Two Arteries from Aorta with Autologous Venous Tissue, Open Approach (ICD-10-PCS; 2020-10-06 07:45)
DX: I25.10 Atherosclerotic heart disease of native coronary artery without angina pectoris (principal); I21.A9 Other myocardial infarction type; I49.01 Ventricular fibrillation; R57.0 Cardiogenic shock; J95.1 Acute pulmonary insufficiency following thoracic surgery; I47.2 Ventricular tachycardia; D62 Acute posthemorrhagic anemia; I50.22 Chronic systolic (congestive) heart failure; Q25.0 Patent ductus arteriosus; I97.120 Postprocedural cardiac arrest following cardiac surgery; M19.90 Unspecified osteoarthritis, unspecified site; D72.829 Elevated white blood cell count, unspecified; E78.00 Pure hypercholesterolemia, unspecified; E78.5 Hyperlipidemia, unspecified; E87.6 Hypokalemia; G47.00 Insomnia, unspecified; I11.0 Hypertensive heart disease with heart failure; I25.5 Ischemic cardiomyopathy; R09.02 Hypoxemia; Z20.822 Contact with and (suspected) exposure to COVID-19; Z79.02 Long term (current) use of antithrombotics/antiplatelets; Z79.82 Long term (current) use of aspirin; Z79.899 Other long term (current) drug therapy; Z82.49 Family history of ischemic heart disease and other diseases of the circulatory system; Y83.8 Other surgical procedures as the cause of abnormal reaction of the patient, or of later complication, without mention of misadventure at the time of the procedure; Y92.89 Other specified places as the place of occurrence of the external cause
CPT/HCPCS: 36415; 36600; 71045; 80048; 80053; 80061; 81001; 82330; 82435; 82550; 82803; 82947; 82948; 83036; 83605; 83735; 83874; 83880; 84100; 84132; 84295; 84484; 85018; 85025; 85027; 85347; 85610; 85730; 86850; 86900; 86901; 86922; 87040; 87088; 87635; 92950; 93005; 93306; 93313; 93458; 93880; 94002; 94003; 94010; 94150; 94660; 97039; 99156; 99157; A4357; A7048; C1729; C1769; G0378; J0171; J0282; J0461; J0610; J0690; J1200; J1644; J1650; J1815; J1940; J2001; J2175; J2250; J2270; J2370; J2405; J2440; J2543; J2704; J2720; J3010; J3480; J3490; J7030; J7040; J7050; J7060; J7120; P9016; Q9967

== ENCOUNTER 2021-02-15 05:54 | Day surgery (SDC) | payer OTHER ==
[2021-02-11 09:03] LABS: BASOPHILS % (AUTO) 0.6 % (0.0-5.0); HEMATOCRIT 45.6 % (36-48); MEAN CORPUSCULAR HEMOGLOBIN 24.4 pg (27.0-33.0); MEAN CORPUSCULAR HGB CONC 30.9 g/dL (32.0-36.0); MEAN CORPUSCULAR VOLUME 78.8 fL (79-99); MONOCYTES % (AUTO) 9.5 % (3.0-13.0); NEUTROPHILS % (AUTO) 73.3 % (40.0-77.0); PLATELET COUNT (AUTO) 204 K/uL (130-400); RED BLOOD CELL COUNT(AUTO) 5.79 MIL/uL (4.00-5.50); RED CELL DISTRIBUTION WIDTH 17.4 % (11.0-15.5); WHITE BLOOD COUNT (AUTO) 7.2 K/uL (4.8-10.8)
[2021-02-11 09:16] LABS: INR 1.18 (0.85-1.15); PROTHROMBIN TIME 12.7 SEC (9.6-11.6)
[2021-02-11 09:17] LABS: PARTIAL THROMBOPLASTIN TIME 29.9 SEC (26.3-35.5)
[2021-02-11 09:26] LABS: CREATININE 1.3 mg/dL (0.5-1.5); POTASSIUM 4.7 mmol/L (3.5-5.1)
[2021-02-12 14:08] VITALS: BP 107/45
[2021-02-14 14:35] VITALS: BP 100/50
[~2021-02-15] VITALS: Ht 154.9 cm; Wt 68.0 kg
[2021-02-15] VITALS (9 sets, daily range): BP systolic 96–115; BP diastolic 46–55
[~2021-02-15 05:54] MED LIST changes: -0.9% NACL 500ML IV.SOLN 500 ML IV SCH; -ACETAMINOPHEN 325 MG TAB PO PRN; +AMIO200T68 PO; +APIX5TAB PO; +ASCO100031 PO; -ASCO100T12 PO; -ATOR10TA69 PO; +ATOR40TA69 PO; -CHOL500045 PO; +FAMO20TA8 PO; +FURO20TA4 PO; -LISI-809 PO; -LORA10CA PO; -LORA10TA7 PO; +LOSA25TA41 PO; +POTA40LI17 PO; +SPIR25TA6 PO; -TRIA15CR48 TP; +VITAMIN D PO
[2021-02-15] MEDS ORDERED: 0.9%NACL 1000ML 1,000 ML IV ONE (06:27)
[2021-02-15] MEDS ORDERED: BUPIVACAINE/PF 0.25% 30ML VIAL IJ ONE (10:05)
[2021-02-15] MEDS ORDERED: MIDAZOLAM HCL 1 MG/ML 2ML VIAL ONE ×2 (10:05→10:37)
[2021-02-15] MEDS ORDERED: CEFAZOLIN SODIUM 1 GM VIAL ONE (10:05)
[2021-02-15] MEDS ORDERED: LIDOCAINE HCL 1% MDV 50ML VIAL ONE (10:06)
[2021-02-15] MEDS ORDERED: MEPERIDINE-PF 25 MG/ML SYG ONE ×2 (10:06→10:37)
[2021-02-15] MEDS ORDERED: ACETAMINOPHEN WITH CODEINE 1 TAB TAB PO PRN ×2 (12:00)
[2021-02-15] MEDS ORDERED: ONDANSETRON 4MG INJ IV PRN (12:00)
[2021-02-15] MEDS ORDERED: CEFAZOLIN SODIUM 1 GM VIAL IVP SCH (16:30)
== END 2021-02-15 16:30 | disposition home or self-care (01) ==
LOC: DAH 05:54
PROVIDERS: ATTEND Internal Medicine Cardiovascular Disease
DX: I25.5 Ischemic cardiomyopathy (principal); I50.42 Chronic combined systolic (congestive) and diastolic (congestive) heart failure; I25.2 Old myocardial infarction; Z79.01 Long term (current) use of anticoagulants; Z95.1 Presence of aortocoronary bypass graft; Z90.710 Acquired absence of both cervix and uterus; Z90.49 Acquired absence of other specified parts of digestive tract; Z98.890 Other specified postprocedural states; Z90.89 Acquired absence of other organs; Z79.899 Other long term (current) drug therapy
CPT/HCPCS: 33249; 36415; 71045; 80048; 85025; 85610; 85730; 93005; A4215; A4216; A4221; A4222; A4223 ×2; A4606; A4663; C1722; C1894; C1895; J0690 ×2; J2175 ×2; J2250 ×2; J3490 ×2; J7030; 99156; 99157

== ENCOUNTER → 2022-02-21 | Outpatient (CLI) | payer OTHER | END | disposition home or self-care (01) | LOC: RAH 14:32 | PROVIDERS: ATTEND Internal Medicine | DX: Z12.31 Encounter for screening mammogram for malignant neoplasm of breast (principal) | CPT/HCPCS: 77067 ==

== ENCOUNTER → 2023-09-13 | Outpatient (CLI) | payer OTHER ==
[~2023-09-13] MED LIST changes: -GARL1000 PO; +GARL10002 PO
== END | disposition home or self-care (01) ==
LOC: SHCH 09:10
PROVIDERS: ATTEND Internal Medicine Cardiovascular Disease
DX: I08.0 Rheumatic disorders of both mitral and aortic valves (principal); I25.10 Atherosclerotic heart disease of native coronary artery without angina pectoris
CPT/HCPCS: 93306

== ENCOUNTER → 2024-02-09 | Outpatient (CLI) | payer OTHER ==
[2024-02-09 12:31] LABS: ALBUMIN 3.9 g/dL (3.5-5.0); BILIRUBIN,TOTAL 0.4 mg/dL (0.2-1.0); CREATININE 1.3 mg/dL (0.5-1.0); POTASSIUM 4.6 mmol/L (3.5-5.1); TOTAL PROTEIN, SERUM 7.5 g/dL (6.0-8.3)
== END | disposition home or self-care (01) ==
LOC: LAB 08:12
PROVIDERS: ATTEND Nurse Practitioner Acute Care
DX: I25.10 Atherosclerotic heart disease of native coronary artery without angina pectoris (principal); I25.5 Ischemic cardiomyopathy; E78.2 Mixed hyperlipidemia
CPT/HCPCS: 36415; 80053; 80061

== ENCOUNTER → 2024-02-26 | Outpatient (CLI) | payer OTHER ==
--- NOTE | 2024-02-26 11:40 | HMCIMG ---
MAMMO SCREENING BILATERAL HISTORY: Screening mammogram. COMPARISON: 02/21/2022 TECHNIQUE: Bilateral screening mammogram with CAD was performed with craniocaudal and mediolateral oblique projections. FINDINGS: There are scattered areas of fibroglandular density. There is no evidence of a dominant mass, or suspicious microcalcification. There is no evidence of nipple retraction or skin thickening. IMPRESSION: 1. Stable mammogram. Patient was entered into a reminder system with a target due date for their next mammogram. BI-RADS: CATEGORY 2: BENIGN FINDINGS Recommend monthly self breast exam as well as annual clinical examination. A negative x-ray should not delay biopsy if a dominant or clinically suspicious mass is present, since 8-10% of cancers are not identified by mammography. Dense breasts particularly, may obscure an underlying neoplasm. Some of these may be detected clinically and therefore, clinical examination is an essential part of breast evaluation.
== END | disposition home or self-care (01) ==
LOC: RAH 10:32
PROVIDERS: ATTEND Nurse Practitioner Family
DX: Z12.31 Encounter for screening mammogram for malignant neoplasm of breast (principal); R92.323 Mammographic fibroglandular density, bilateral breasts
CPT/HCPCS: 77067

== ENCOUNTER → 2024-10-16 | Outpatient (CLI) | payer OTHER ==
[~2024-10-16] MED LIST changes: -AMIO200T68 PO; +AMIO200T73 PO; -ASCO100031 PO; +ASCO10004 PO
[2024-10-16] MEDS: REGADENOSON 0.4 MG/5 ML PF SYG IVP ONE (11:05)
--- NOTE | 2024-10-17 09:10 | HMCSR ---
APPROVED REPORT Height: 5 ft 2in Weight: 158 lbs TEST INDICATIONS CAD The imaging protocol used to acquire images was Rest Tc-99m/stress Tc-99m 1 day Consent: The procedure was explained and understood by the patient. Informerd consent was witnessed Lisa MERCHANT RN First, low dose rest was performed then high dose stress. RESTING DATA: The resting ekg shows: NSR Rest SPECT myocardial perfusion imaging was performed in supine position minutes following the intra venous injection of 11 mCi of Tc-99m Tetrofosmin. Time of rest injection: 09:25: Date: 10/16/2024 PHARMACOLOGIC STRESS: Pharmacologic stress test was performed by injecting regadenoson 0.4 mg IV push followed by the intra venous injection of 29 mCi of Tc-99m Tetrofosmin. Time of stress injection: 10:55: Date: 10/16/2024 Heart Rate at time of stress injection: 56 bpm. Gated Stress SPECT was performed 60 minutes after stress injection. The images were gated to evaluate regional wall motion and calculate left ventricular ejection fracti on. STRESS DETAILS Reason for Termination: 86 Infusion complete Stress Symptoms: Dyspnea Max HR Achieved: 86 bpm % of APMHR Achieved: 69 Max Blood Pressure: 127/69 mmHg Stress ECG: NSR LEFT VENTRICLE Size: The left ventricular size is normal. Systolic Function:The left ventricular systolic function is moderately decreased. Wall Motion: Apical akinesis. The left ventricular ejection fraction was calculated to be 43%.TID = . LV PERFUSION Fixed apical defect. Large anterior, and inferior reversible ischemic defects. High risk scan. Conclusion The left ventricular size is normal. The left ventricular systolic function is moderately decreased. Apical akinesis. Fixed apical defect. Large anterior, and inferior reversible ischemic defects. High risk scan. The left ventricular ejection fraction was calculated to be 43%.
== END | disposition home or self-care (01) ==
LOC: RAH 08:54
PROVIDERS: ATTEND Internal Medicine Cardiovascular Disease
DX: I25.10 Atherosclerotic heart disease of native coronary artery without angina pectoris (principal); R29.898 Other symptoms and signs involving the musculoskeletal system
CPT/HCPCS: 78452; 93017; J2785; A9500 ×2

== ENCOUNTER → 2024-11-11 | Outpatient (CLI) | payer OTHER ==
[~2024-11-11] MED LIST changes: +IOHEXOL 350 MG/ML 100ML INFUS..BTL IV ONE
--- NOTE | 2024-11-14 21:14 | CARDIOLOGY ---
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 A dedicated, limited window, coronary imaging protocol was used, with single breath-hold, retrospective ECG gating, and automated arrhythmia rejection. 100 cc of low osmolar contrast agent: Omnipaque 350 was delivered via a 18-gauge IV catheter in the right antecubital fossa, using a power injector and followed by 60 cc of normal saline bolus as a chaser. Collimated images were reformatted at 0.5 mm intervals, and sent to an offline independent workstation for interpretation, using 3D anatomic reconstructions: Curved multiplanar reconstructions, maximum intensity projections, and multiplanar imaging. No metoprolol was administered prior to scanning due to low baseline heart rate. 0.8 mg SL nitroglycerin was given. CORONARY ARTERY DESCRIPTIONS: The coronary arteries arise in normal position. Left main coronary artery: Normal caliber vessel that bifurcates into the LAD and LCx. There is no stenosis. Left anterior descending coronary artery: Normal caliber vessel and gives rise to diagonal and septal branches. There is 80-90% proximal LAD and 90-99% ostial/proximal D1 stenosis. Left circumflex coronary artery: Normal caliber, nondominant and gives rise to a large branching OM branch. There is mixed calcified and noncalcified plaque in the proximal OM branch with 80-90% stenosis and 90-99% stenosis in the inferior branch. Right coronary artery: Large, dominant vessel giving rise to the PL and PDA branches. There is mixed calcified and noncalcified plaque in the mid RCA with 80-90% stenosis. There is mixed calcified and noncalcified plaque in the mid PDA with 50-60% stenosis. MONREAL appears atretic distally. Occluded SVG to LAD. Occluded SVG to OM. Occluded SVG to RCA. Thoracic Aorta: Normal diameter. Recommend left heart catheterization. Kristi Hand MD Cardiovascular [facility] KRISTI HAND MD Nov 14, 2024 21:14
== END | disposition home or self-care (01) ==
LOC: RAH 08:55
PROVIDERS: ATTEND Internal Medicine Cardiovascular Disease
DX: I25.10 Atherosclerotic heart disease of native coronary artery without angina pectoris (principal); R06.02 Shortness of breath; R94.39 Abnormal result of other cardiovascular function study; Z95.1 Presence of aortocoronary bypass graft
CPT/HCPCS: 75574; Q9967